=== PATIENT | female | born 1960 | race Caucasian/White ===

== ENCOUNTER 2019-01-09 15:14 | Emergency (ER) | payer OTHER ==
[2019-01-09] MEDS ORDERED: IPRATROPIUM/ALBUTEROL 3 ML NEB INH STA (16:14)
[2019-01-09] MEDS ORDERED: DEXAMETHASONE 10 MG/ML VIAL PO STA (16:14)
--- NOTE | 2019-01-09 16:17 | ED Physician Documentation ---
PD HPI DYSPNEA - Stated complaint Stated Complaint: COUGH/WHEEZY - Chief complaint Chief Complaint: Resp - History obtained from History obtained from: Patient - History of Present Illness Timing - onset: How many days ago (3-4) Timing - onset during: Rest Timing - duration: Days (3-4) Timing - details: Gradual onset, Still present Inciting event(s): URI Improved by: Inhaler/neb Worsened by: Exertion, Laying flat, Coughing Associated symptoms: Cough, Wheezing. No: Fever Similar symptoms before: Diagnosis (asthma exacerbation.) Recently seen: Not recently seen - Additional information Additional information: 58-year-old female with a history of persistent asthma usually does well with her Flovent inhaler and her albuterol inhaler. She has been using her albuterol 3 times today and has not had relief entirely of her wheezing. She notes that she has coughed for about 3-4 days and she is coughing up yellow and green phlegm. She has had pneumonia previously and she states "this is not pneumonia". She feels her allergies are out of control. Review of Systems Constitutional: denies: Fever Eyes: denies: Decreased vision Ears: denies: Ear pain Nose: reports: Congestion. denies: Rhinorrhea / runny nose Throat: reports: Sore throat Cardiac: reports: Chest pain / pressure. denies: Palpitations, Pedal edema, Calf pain Respiratory: reports: Dyspnea, Cough, Wheezing GI: denies: Abdominal Pain, Nausea, Vomiting : denies: Dysuria PD PAST MEDICAL HISTORY - Past Medical History Cardiovascular: High cholesterol Respiratory: Asthma Derm: Rosacea - Past Surgical History Past Surgical History: Yes /[employer]: section, Endometrial ablation - Present Medications Home Medications: Ambulatory Orders Medication Instructions Recorded Confirmed Albuterol Sulfate 0.63 mg 03/02/14 03/02/14 Atorvastatin Calcium [Lipitor] 20 mg PO 03/02/14 03/02/14 Fexofenadine [Argelia] 180 mg PO DAILY 03/02/14 03/02/14 Fluticasone Propionate [Flovent 250 mcg 03/02/14 03/02/14 Diskus] Azithromycin [Zithromax] 250 mg PO DAILY PM #6 tablet 01/09/19 Levothyroxine Sodium [Synthroid] 100 mg DAILY 01/09/19 01/09/19 Lisinopril 5 mg DAILY 01/09/19 01/09/19 Montelukast [Singulair] 10 mg DAILY 01/09/19 01/09/19 predniSONE [Deltasone] 10 mg PO ONCE #26 tablet 01/09/19 - Allergies Allergies/Adverse Reactions: Allergies Allergy/AdvReac Type Severity Reaction Status Date / Time No Known Drug Allergies Allergy Verified 03/02/14 16:48 - Social History Does the pt smoke?: No Smoking Status: Never smoker Does the pt drink ETOH?: No Does the pt have substance abuse?: No - POLST Patient has POLST: No PD ED PE NORMAL - Vitals Vital signs reviewed: Yes (hypertensive ) - General General: Alert and oriented X 3, No acute distress, Well developed/nourished - HEENT HEENT: Atraumatic, PERRL, EOMI, Ears normal, Other (dry mucous membranes ) - Neck Neck: Supple, no meningeal sign, No bony TTP - Cardiac Cardiac: RRR, No murmur - Respiratory Respiratory: Other (tachypneic with diminished breath sounds and audible wheeze) - Abdomen Abdomen: Soft, Non tender - Back Back: No CVA TTP, No spinal TTP - Derm Derm: Normal color, No rash - Extremities Extremities: No deformity, No edema - Neuro Neuro: Alert and oriented X 3, head automatic sawyer 2-12 intact, No motor deficit, No sensory deficit, Normal speech Eye Opening: Spontaneous Motor: Obeys Commands Verbal: Oriented GCS Score: 15 - Psych Psych: Normal mood, Normal affect Results - Vitals Vitals: Vital Signs - 24 hr 01/09/19 01/09/19 15:50 17:00 Temperature 36.8 C Heart Rate 82 80 Respiratory 18 22 Rate Blood Pressure 140/87 H O2 Saturation 97 Oxygen O2 Source Room air - Rads (name of study) chest 2 veiw Radiology: Prelim report reviewed (Impression: No acute cardiopulmonary abnormality.), EMP read indepedently, See rad report PD MEDICAL DECISION MAKING - ED course Complexity details: reviewed results, re-evaluated patient, considered differential, d/w patient ED course: 58-year-old female with acute worsening of asthma not responding to her usual inhalers is coughing some yellow-green phlegm. She feels this is likely a allergy related issue with copious spring pollen and she is administered dexamethasone and a DuoNeb treatment. Departure - Departure Disposition: Home, Self Care Clinical Impression: Asthma Qualifiers: Asthma severity: moderate Asthma persistence: persistent Asthma complication type: with acute exacerbation Qualified Code(s): J45.41 - Moderate persistent asthma with (acute) exacerbation Condition: Stable Instructions: ED Bronchitis Asthmatic Follow-Up: SUSU EVERETT PA-C [Primary Care Provider] - Prescriptions: Azithromycin [Zithromax] 250 mg PO DAILY PM #6 tablet predniSONE [Deltasone] 10 mg PO ONCE #26 tablet Forms: Activity restrictions
[2019-01-09] MEDS ORDERED: CHERRY SYRUP 10 ML UDC PO ONE (16:29)
--- NOTE | 2019-01-09 16:44 | XRAY Report ---
Reason: cough, shortness Procedure Date: 01/09/2019 Accession Number: [id number] / [id number] Procedure: XR - Chest 2 View X-Ray CPT Code: 58226 FULL RESULT: EXAM: CHEST RADIOGRAPHY EXAM DATE: 01/09/2019 04:26 PM. CLINICAL HISTORY: Cough, shortness. COMPARISON: None. TECHNIQUE: 2 views. FINDINGS: Lungs/Pleura: No focal consolidation. No pleural effusion. No pneumothorax. Normal volumes. Mediastinum: Heart and mediastinal contours are normal. Other: None. IMPRESSION: No acute cardiopulmonary abnormality. RADIA
[2019-01-09] MEDS ORDERED: ALBUTEROL NEB 2.5 MG/3 ML INH STA (17:23)
[2019-01-09 18:08] VITALS: BP 138/78
== END 2019-01-09 17:50 | disposition home or self-care (01) ==
LOC: ED 15:14
DX: J45.41 Moderate persistent asthma with (acute) exacerbation (principal)
CPT/HCPCS: 71046; 94640; 99283; A9270